=== PATIENT | female | born 1995 | race Caucasian/White ===

== ENCOUNTER 2023-05-31 09:57 | Outpatient (CLI) | payer MEDICARE, MEDICAID, SELFPAY | END 2023-05-31 09:58 | disposition home or self-care (01) | LOC: ANHBWCAUD 09:58 | PROVIDERS: PCP Family Medicine; Visit Provider Family Medicine | DX: H90.3 Sensorineural hearing loss, bilateral (principal) | CPT/HCPCS: 92553; 92555; 92567 ==